=== PATIENT | female | born 1950 | race Asian ===

== ENCOUNTER → 2016-10-16 | Outpatient (CLI) | payer MEDICARE, BC ==
--- NOTE | 2016-10-18 07:53 | RADRPT ---
PROCEDURE: XR Knee. CLINICAL INDICATION: Left knee pain TECHNIQUE: 4 views of the left knee are available for review. COMPARISON: None available FINDINGS: There is severe joint space narrowing and osteophyte formation involving the medial and patellofemor al compartments. No acute fracture or dislocation is identified. Bony mineralization is normal. T here is no radiodense foreign body. There is approximately 5 mm lateral subluxation of the tibia re lative to the femur. IMPRESSION: 1. Severe left knee osteoarthrosis, with approximate 5 mm lateral subluxation of the tibia. 2. No acute fracture or dislocation is seen. RPTAT: EE .Irvin Melendez MD, MD Date Time Electronically viewed and signed by .Irvin Melendez MD, on 10/18/2016 07:53 .R/
== END | disposition home or self-care (01) ==
LOC: HKI 15:10
PROVIDERS: ATTEND Orthopaedic Surgery
DX: M17.0 Bilateral primary osteoarthritis of knee (principal); M25.562 Pain in left knee
CPT/HCPCS: 73564; G0463

== ENCOUNTER → 2016-11-01 | Outpatient (CLI) | payer MEDICARE, BC ==
--- NOTE | 2016-11-01 13:39 | RADRPT ---
PROCEDURE: Limited x-ray of both lower extremities. CLINICAL INDICATION: Bilateral leg pain. TECHNIQUE: Single frontal view of both lower extremities was obtained from the hips to the calves. COMPARISON: Left knee radiographs dated 10/16/2016. FINDINGS: They hips not well seen but appear grossly normal with no displaced fracture or dislocation. There are severe degenerative changes of both knees. IMPRESSION: 1. Hips not well seen. 2. Severe degenerative changes of both knees. RPTAT: QQ .Franko Naqvi MD, Date Time Electronically viewed and signed by .Franko Naqvi MD, on 11/01/2016 13:39 .R/
== END | disposition home or self-care (01) ==
LOC: HKI 10:42
PROVIDERS: ATTEND Orthopaedic Surgery
DX: Z01.818 Encounter for other preprocedural examination (principal); M17.12 Unilateral primary osteoarthritis, left knee; M25.562 Pain in left knee
CPT/HCPCS: 77073; G0463

== ENCOUNTER 2016-11-09 07:44 | Inpatient (IN) | payer MEDICARE, BC ==
[~2016-11-09] VITALS: Ht 147.3 cm; Wt 61.6 kg
[2016-11-09] VITALS (24 sets, daily range): BP systolic 107–184; BP diastolic 56–87; PULSE 74–104; RESP 8–35; Ht 147.3 cm; Wt 61.6 kg
[~2016-11-09 07:44] MED LIST: ROCURONIUM 50 MG INJ ONE; SUCCINYLCHOLINE CHLORIDE 100 MG/5 ML SYG IV ONE
[2016-11-09] MEDS ORDERED: BUPIVACAINE LIPOSOME/PF 266 MG/20 ML VIAL INFIL ONE (09:00)
[2016-11-09] MEDS ORDERED: TRANEXAMIC ACID in SOD CHLORIDE 0.9% 100 ML ON CALL TO OR IV ONE (09:00)
[2016-11-09] MEDS ORDERED: CELECOXIB 400 MG PO X1 DOSE PO ONE (09:00)
[2016-11-09] MEDS ORDERED: traMADOL 50 MG TAB X 1 DOSE PO ONE (09:00)
[2016-11-09] MEDS ORDERED: oxyCODONE (CR) 10 MG TAB [oxyCONTIN] X1 DOSE PO ONE (09:00)
[2016-11-09] MEDS ORDERED: PAIN COCKTAIL-CEFUROXIME IRR ONE ×7 (09:00)
[2016-11-09] MEDS ORDERED: TRANEXAMIC ACID 600 MG in SOD CHLORIDE 0.9% 100 ML IVPB ONE (09:00)
[2016-11-09] MEDS ORDERED: CEFAZOLIN 2GM/50 ML (PMX) 50 ML X1 BEFORE INCISION IVPB ONE (09:00)
[2016-11-09] MEDS ORDERED: PREGABALIN 300 MG PO X1 PO ONE (09:00)
[2016-11-09] MEDS ORDERED: MTF1000T PO (09:37)
[2016-11-09] MEDS ORDERED: FERR325C PO (09:37)
[2016-11-09] MEDS ORDERED: CHOL20003 PO (09:37)
[2016-11-09] MEDS ORDERED: ASPI-664 PO (09:37)
[2016-11-09] MEDS ORDERED: GLIP-95 PO (09:37)
[2016-11-09] MEDS ORDERED: SUPER K PO (09:37)
[2016-11-09] MEDS ORDERED: MULT-860 PO (09:37)
--- NOTE | 2016-11-09 10:14 | HPN ---
Date/Time of Note Date/Time of Note DATE: 11/09/16 TIME: 10:14 Interval H&P Admission Note Pt. seen H&P reviewed: No system changes No changes from H&P on 11/02/16 by ANT Moscoso MD Nov 09, 2016 10:14
[2016-11-09] MEDS ORDERED: SODIUM CL BACTERIOSTATIC 30 ML INJ ONE (10:34)
[2016-11-09] MEDS ORDERED: VANCOMYCIN 1 GM INJ ONE (10:34)
[2016-11-09] MEDS ORDERED: POLYMYXIN B 500000 UNIT INJ ONE (10:34)
[2016-11-09] MEDS ORDERED: PROPOFOL 100 ML ONE (10:45)
[2016-11-09] MEDS ORDERED: LIDOCAINE 2% (SDV) 5 ML INJ ONE (10:45)
[2016-11-09] MEDS ORDERED: FENTAnyl 50 MCG/ML VIAL ONE (10:45)
[2016-11-09] MEDS ORDERED: MIDAZOLAM 1 MG/ML 2 ML INJ ONE (10:47)
[2016-11-09] MEDS ORDERED: ONDANSETRON 4 MG INJ ONE (11:02)
[2016-11-09] MEDS ORDERED: METOCLOPRAMIDE 10 MG INJ ONE (11:02)
[2016-11-09] MEDS ORDERED: FAMOTIDINE 20 MG INJ ONE (11:02)
[2016-11-09] MEDS ORDERED: DEXAMETHASONE 4 MG/ML 1 ML INJ ONE (11:02)
[2016-11-09] MEDS ORDERED: CEFAZOLIN 1 GM INJ ONE (11:02)
[2016-11-09] MEDS ORDERED: EPHEDrine SULFATE 50 MG/5 ML SYG ONE ×2 (11:32→12:00)
[2016-11-09] MEDS ORDERED: BACITRACIN 50000 UNITS INJ IRR ONE (11:55)
--- NOTE | 2016-11-09 13:26 | OPPN ---
Date/Time of Note Date/Time of Note DATE: 11/09/16 TIME: 13:25 Operative/Procedure Note Dictation # [id number] Pre-Operative Diagnosis Left Knee OA Post-Operative Diagnosis Same Procedure Left TKA Surgeon: ANT DEUTSCH MD [employer] Systems Integration Specialist: ARVIND ROSE PA-C Anesthesiologist: JOEL ROSADO MD Findings Severe OA Blood Usage/Administration None Implants/Grafts Depuy Attune TKA Estimated blood loss: 50 - 100 ml's Drains Hemovac x 1 Specimens Bone and soft tissue Complications: None Anesthesia type: spinal ANT DEUTSCH MD Nov 09, 2016 13:26
[2016-11-09] MEDS ORDERED: BISACODYL 10 MG SUPP PR PRN (13:30)
[2016-11-09] MEDS ORDERED: ASPIRIN (EC) 325 MG TAB PO ONE (13:30)
[2016-11-09] MEDS ORDERED: ONDANSETRON 4 MG INJ IV PRN (13:30)
[2016-11-09] MEDS ORDERED: DIPHENHYDRAMINE 50 MG INJ IV PRN (13:30)
[2016-11-09] MEDS ORDERED: NA PHOSPHATE/BIPHOS 133 ML ENEMA PR PRN (13:30)
[2016-11-09] MEDS ORDERED: DIPHENHYDRAMINE 25 MG CAP PO PRN (13:30)
[2016-11-09] MEDS ORDERED: HYDROmorphONE (0.2 MG/ML) 10ML SYG IV PRN (13:30)
[2016-11-09] MEDS ORDERED: FENTAnyl 50 MCG/ML VIAL IV PRN (13:30)
[2016-11-09] MEDS ORDERED: MEPERIDINE 25 MG INJ IV PRN (13:30)
[2016-11-09] MEDS ORDERED: PROCHLORPERAZINE 10 MG INJ IV PRN (13:30)
[2016-11-09] MEDS ORDERED: NACL 0.9% 3 ML SYG IV SCH (13:30)
[2016-11-09] MEDS ORDERED: MAGNESIUM HYDROXIDE 30ML CUP PO PRN (13:30)
[2016-11-09] MEDS ORDERED: INSULIN ASPART [NOVOLOG] 3 ML PEN SC SCH (13:30)
[2016-11-09] MEDS ORDERED: HYDROmorphONE 1 MG/ML SYG IV PRN (13:30)
--- NOTE | 2016-11-09 13:43 | OPR ---
DATE OF OPERATION: 11/09/2016 PREOPERATIVE DIAGNOSIS: Left knee osteoarthritis. POSTOPERATIVE DIAGNOSIS: Left knee osteoarthritis. OPERATION PERFORMED: Left total knee arthroplasty. SURGEON: Ant Powell MD ENTERTAINMENT MUSICIAN: CULLEN Comer COMPONENTS USED: DePuy Attune size 3 narrow femoral component, size 1 tibial baseplate, 10 mm polye thylene insert, 32 patellar button. ANESTHESIA: Spinal plus general endotracheal intubation plus periarticular injection. ANESTHESIOLOGIST: Dr. Meredith Sinclair. TOURNIQUET TIME: 64 minutes. ESTIMATED BLOOD LOSS: 50 mL. INTRAVENOUS FLUIDS: 2000 mL of crystalloid. SPECIMENS: Bone and soft tissue. DRAINS: Hemovac x1. COMPLICATIONS: None. DISPOSITION: Patient tolerated the procedure well and was taken to the recovery room in stable [facility]. INDICATIONS: The patient is a 66-year-old woman who has had progressive worsening pain in the left knee with radiographic evidence of severe osteoarthritis. She has failed nonsurgical means of treat ment to control her pain including activity modifications, pain medications, intra-articular injecti ons and ambulatory assist devices. Despite these measures, she has had worsening pain and I felt sh e would benefit from a total knee arthroplasty cut approximately. APPROACH: The risks, benefits, and alternatives of the procedure were explained in detail to the patient. I e xplained the risks of the surgery to include but not be limited to, bleeding and possible need for b lood transfusion; infection; pain; stiffness; neurovascular injury with possible numbness, weakness, and/or paralysis anywhere from the knee down to the toes; fracture; instability; dislocation; wear and/or loosening of the prosthesis and possible need for future revision; blood clots; pulmonary emb olism; and anesthetic complications such as heart attack, stroke, GI bleed, pneumonia, and/or . Ample time was allowed for the patient to ask questions, all of which were addressed and answered. The patient understood the risks involved and wished to proceed. Informed consent was signed prior to the procedure. PROCEDURE: The patient's left knee was initialed with a marking pen in the preoperative area to kaiden ntify the correct operative site. The patient was brought to the operating room and transferred fro [facility] to the operating table where a spinal anesthetic was administered. The patient was then anesthetized and intubated. A Lazo catheter was placed. A timeout was performed to conf irm that the left leg was the correct operative site. The patient was given 2 g of Ancef within one hour prior to the procedure. A tourniquet was placed on the operative proximal thigh. The operati ve knee and lower extremity were prepped and draped in the usual sterile fashion. The operative low er extremity was elevated and exsanguinated with an Esmarch tourniquet. The proximal thigh tourniqu et was inflated to 300 mmHg. The knee was flexed. A midline incision was made and carried down through the subcutaneous tissue a nd fat with sharp dissection. Limited medial and lateral flaps were raised. A median parapatellar arthrotomy approach was performed. Synovial fluid was normal in color and consistency. The patella was everted and the knee flexed. There were severe tricompartmental osteoarthritic changes noted. A medial release was performed at the joint line to the midcoronal plane. The ACL and PCL and remnan ts of the menisci were excised. The stepped drill was used to open up the femoral canal which was i rrigated and sucked dry. The intramedullary guide patsy was passed up the femur, and the distal cutti ng block was pinned into place for a 5 degree valgus cut, taking 10 mm of bone off distally. The osc illating saw was used to make the cut. The tibia was subluxed anteriorly. The tibial cutoff jig was placed over the center of the talus d istally and over the junction of the medial and middle third of the tibial tubercle proximally. The guide was pinned into place and the oscillating saw was used to make the cut. The tibia was sized. The extension gap was checked and accommodated a 10 mm spacer block with the knee in full extension . There was no varus or valgus instability. At this point, the femur was sized with the posterior referencing guide. Two holes were drilled in 3 degrees of external rotation. The two holes were in line with the transepicondylar axis, perpendi cular to [place] line, and in line with the tibial cutoff jig brought up with the knee flexed 90 degrees and tensed with 2 lamina spreaders, suggesting the femoral rotation was correct. The four- in-one cutting block was pinned into place. The anterior and posterior cuts and chamfer cuts were m lily with the oscillating saw. The flexion gap was checked and accommodated the 10 mm spacer block a t 90 degrees. There was no varus or valgus instability, suggesting the flexion and extension gaps w ere now equal. The central box was cut out on the femur. The tibia was drilled and punched in proper rotation. Tri al components were placed into position with a trial insert. The patella was cut down from 18 mm to 12 mm and sized. Three holes were drilled and the trial button placed in position. With all the t rials now in place, the knee was taken through range of motion and came to full extension as evidenc ed by the fact that with the foot on my abdomen and axial loading, there was no tendency for the kne e to flex. The knee was able to be flexed to 125 degrees with good patellar tracking with no latera l tilt or subluxation. At this point, I was satisfied with the overall range of motion, stability, and patellar tracking. The trials were removed. The real components were opened. Two bags of cement were mixed, one with and one without premixed antibiotic. The knee was irrigated with antibiotic saline and sucked dry. Once the cement was in a doughy stage, the real components were cemented into place. The knee was held in full extension, and the patellar component was held with a patellar clamp. All excess cemen t was removed with curettes. As the cement was hardening, the synovial/capsular layer was infiltrat ed with a mixture of 150 mg of 0.5% Bupivacaine, 8 mg of Duramorph, 300 mcg of epinephrine, 30 mg of Toradol, 100 mcg of clonidine, 750 mg of cefuroxime and 86 mL of normal saline, followed by an inje ction of 266 mg of liposomal Bupivacaine. A Hemovac drain was placed in the deep portion of the wound and brought out the anterolateral thigh. Once the cement was completely hardened, the trial liner was removed, and the real insert was open ed. The tourniquet was let down, and there was good hemostasis. The knee was then irrigated with a mixture of betadine/saline and then antibiotic saline with pulsatile lavage. The real insert was impacted into the tibia and reduced onto to the femur. The arthrotomy was closed with a few interrupted #1 Ethibond in a dsyrbj-gb-bgbpt fashion, and then closed in a watertight fashion with a running #2 StrataFix suture. Knee flexion was checked against gravity and came to 125 degrees. The subcutaneous layer was irrigated and closed with 2-0 StrataFi x, and then 3-0 Vicryl and then francisco on the skin. The wound was covered with an occlusive dressi ng, and secured with cast padding and a bias dressing. The drain was secured with 3-0 nylon. The sponge and needle counts were correct at the end of the case. The patient was then awakened, ex tubated, and taken to the recovery room in stable condition. Dictated By: ANT GRIFFIN/NTS Conf#: [id number] DID#: [id number]
--- NOTE | 2016-11-09 13:50 | PN ---
Date/Time of Note Date/Time of Note DATE: 11/09/16 TIME: 13:49 Assessment/Plan Lines/Catheters IV Catheter Type (from Nrsg): Peripheral IV Assessment/Plan Assessment/Plan Stable in PACU, s/p left TKA -continue abx -pain meds as needed -ASA/SCDs for DVT prophylaxis -OOB with PT -monitor drain -check AM labs -d/c gordillo in AM XR of the left hip is still pending at this time Subjective 24 Hr Interval Summary Stable in PACU. Denies any pain but still sleepy from anesthesia. Moving all extremities. Exam/Review of Systems Vital Signs Vitals Vital Signs Date Time Temp Pulse Resp B/P Pulse Ox O2 Delivery O2 Flow Rate FiO2 11/09/16 13:31 97.9 11/09/16 13:22 87 112/62 99 Nasal Cannula 11/09/16 09:40 16 Exam Free Text/Dictation Dressing dry Incision clean, dry, and intact without redness or drainage Thigh soft 5/5 Quadriceps, Tibialis Anterior, EHL, Gastroc, Soleus, Peroneals Normal sensation Palpable DT/PT, CR <2 sec No distal edema ARVIND ROSE PA-C Nov 09, 2016 13:50
[2016-11-09] MEDS: CEFAZOLIN 2 GM/50 ML (PMX) 50 ML IVPB SCH ×2 (13:59→22:22)
[2016-11-09] MEDS ORDERED: GLUCOSE GEL 15 GRAM TUBE BUCCAL PRN (14:00)
[2016-11-09] MEDS ORDERED: GLUCAGON 1 MG INJ IM PRN (14:00)
[2016-11-09] MEDS ORDERED: GLUCOSE GEL 15 GRAM TUBE PO PRN ×2 (14:00)
[2016-11-09] MEDS ORDERED: DEXTROSE 50% 50 ML SYRINGE IV PRN ×2 (14:00)
[2016-11-09 14:01] LABS: HEMATOCRIT 34.8 % (37.0-47.0); HEMOGLOBIN 11.1 g/dl (12.0-16.0)
[2016-11-09 14:13] LABS: POTASSIUM 3.9 mmol/L (3.5-5.1)
[2016-11-09 14:15] LABS: CREATININE 0.45 mg/dl (0.44-1.00)
[2016-11-09 14:16] LABS: CALCIUM 8.3 mg/dl (8.4-10.2)
--- NOTE | 2016-11-09 15:10 | RADRPT ---
PROCEDURE: XR Knee. CLINICAL INDICATION: Postop TECHNIQUE: AP and lateral views of the left knee are available for review. COMPARISON: None available FINDINGS: A cemented left total knee arthroplasty is present in near anatomic alignment without acute radiogra phic abnormality. Recent surgical changes seen in the soft tissues. IMPRESSION: 1. Total left knee arthroplasty in near anatomic alignment without acute radiographic abnormality RPTAT: RR .Escobar Vega MD, MD Date Time Electronically viewed and signed by .Escobar Vega MD, on 11/09/2016 15:10 .d/
[2016-11-09] MEDS ORDERED: EXPAREL NOTE (BUPIVICAINE LIPOSOMAL) XX SCH (16:00)
[2016-11-09] MEDS: LACTATED RINGER'S 1,000 ML IV SCH ×4 (16:00→20:56)
[2016-11-09] MEDS ORDERED: SOD CHLORIDE 0.9% IVPB ONE ×2 (16:30→19:30)
[2016-11-09] MEDS ORDERED: TRANEXAMIC ACID IVPB ONE ×2 (16:30→19:30)
[2016-11-09] MEDS ORDERED: metFORMIN 500 MG TAB PO SCH (17:55)
[2016-11-09] MEDS: ACETAMINOPHEN 1000MG/100ML IV 100 ML IVPB SCH (18:44)
[2016-11-09] MEDS: PANTOPRAZOLE (EC) 40 MG TAB PO SCH (18:45)
[2016-11-09] MEDS: traMADol 50 MG TAB PO SCH (18:46)
[2016-11-09] MEDS: ONDANSETRON 4 MG INJ IV PRN (18:50)
[2016-11-09] MEDS ORDERED: TRIMETHOBENZAMIDE 100 MG/ML VIAL IM PRN (20:00)
[2016-11-09] MEDS: DOCUSATE SODIUM 100 MG CAP PO SCH (20:15)
[2016-11-09] MEDS: PREGABALIN 25 MG CAP PO SCH (20:16)
--- NOTE | 2016-11-09 20:50 | PREOPHP ---
DATE OF ADMISSION: 11/09/2016 TYPE OF CONSULTATION: Medical. Thank you, Dr. Deutsch, for asking me to participate in medical management of this patient. REASON FOR CONSULTATION: To manage the patient's diabetes mellitus. HISTORY OF PRESENT ILLNESS: This 66-year-old female is now postop a left total knee arthroplasty to day by Dr. Deutsch. The patient has had pain in both knees. She has osteoarthritis in both knees an d has had more difficulty walking with increasing pain. The patient has failed medical therapy and has decided to undergo a left total knee arthroplasty. The patient has a history of type 2 diabetes mellitus. MEDICATIONS She is currently taking the following medication: 1. Metformin 1000 mg twice a day. 2. Glipizide 10 mg twice a day. PAST SURGICAL HISTORY: Remarkable for umbilical hernia surgery. ALLERGIES: NO KNOWN DRUG ALLERGIES. PHYSICAL EXAMINATION GENERAL: At this time, reveals a well-developed female in no apparent distress. She is having some nausea with some vomiting. VITAL SIGNS: Pulse of 80, respirations 12, blood pressure 119/60, O2 saturation 97% on 2 L nasal ca nnula. HEENT: Head normocephalic. Eyes, extraocular muscles intact. Nose and mouth are normal. NECK: Supple. No neck vein distention. LUNGS: Clear to auscultation. HEART: Regular rhythm. No murmurs, gallops or rubs. ABDOMEN: Soft, nontender. EXTREMITIES: No peripheral edema. IMPRESSION: This 66-year-old female is now postoperative a left total knee replacement. She is hav ing postoperative nausea. This is being treated. I explained to the patient to not eat or drink an ything until she is feeling less nauseated. PLAN 1. Start the patient on sliding scale insulin to cover elevated blood sugar. 2. Keep the patient n.p.o. until the nausea has resolved. 3. Postop total knee arthroplasty protocol. 4. I will follow the patient along with you. 5. Laboratory tests in the morning. Dictated By: DARRELL NAVARRETE MD, ND/KVNG Conf#: [id number] DID#: [id number] CC: ANT DEUTSCH MD;*EndCC*
[2016-11-09] MEDS: INSULIN ASPART [NOVOLOG] 3 ML PEN SC SCH (21:00)
[2016-11-10] MEDS: ACETAMINOPHEN 1000MG/100ML IV 100 ML IVPB SCH ×3 (00:12→13:44)
[2016-11-10] MEDS: ACCUCHECK XX SCH (01:53)
[2016-11-10 04:51] LABS: HEMATOCRIT 30.8 % (37.0-47.0); HEMOGLOBIN 9.6 g/dl (12.0-16.0)
[2016-11-10] MEDS: LACTATED RINGER'S 1,000 ML IV SCH ×5 (05:00→21:18)
[2016-11-10 05:16] LABS: POTASSIUM 4.4 mmol/L (3.5-5.1)
[2016-11-10 05:18] LABS: CREATININE 0.52 mg/dl (0.44-1.00)
[2016-11-10 05:19] LABS: CALCIUM 8.6 mg/dl (8.4-10.2)
[2016-11-10] MEDS: traMADol 50 MG TAB PO SCH ×3 (05:25→17:54)
[2016-11-10] MEDS: CEFAZOLIN 2 GM/50 ML (PMX) 50 ML IVPB SCH (06:36)
[2016-11-10] MEDS ORDERED: glipiZIDE 10 MG TAB PO SCH (07:00)
--- NOTE | 2016-11-10 07:36 | PDOCDIS ---
Discharge Instructions DIAGNOSIS Discharge Diagnosis: s/p left TKA CONDITION Patient Condition: Good HOME CARE INSTRUCTIONS: Diet Instructions: RegularSpecial Diet: VEGETERIAN/1800 ADA DIET ACTIVITY: Activity Restrictions: Slowly Increase Activity Rest between Activity Avoid heavy lifting Do not Drive Do not operate Machinery Do not operate Power Tool Avoid Heavy Housework Keep Limb Elevated Weight Bearing FOLLOW UP/APPOINTMENTS Appointments follow up in the office on 11/20/16 OTHER ORDERS: Other Orders: S/P TKA Physical Therapy: Three times per week at home x 2 weeks Daily in Rehab/SNF (if applicable) WB STATUS: WBAT 1. Strengthening exercises for both upper and un-operated lower extremities. 2. Gait training with front wheeled walker 3. Active range of motion exercises to operative knee. 4. When not working on knee range of motion exercises, distal towel roll under operative ankle/distal calf to promote full extension. 5. DO NOT PUT ANYTHING BEHIND OPERATIVE KNEE!!! 6. Quadriceps and hamstring strengthening. 7. May switch to cane in contra lateral hand 6 weeks after surgery. 8. Physical Therapy can open case if nursing is not available. 9. Use Ice Machine as instructed from date of surgery while at rest 3X/day. 10. Patient requires mobile SCDs to reduce risk of developing DVT following TKA. Patient will use the mobile SCDs for 30 days postoperatively. Bathing assistance by home health aide twice weekly if Medicare patient. Occupational Therapy: Evaluation for assistive devices and ADL training. Wound Care: Keep incision dry & covered with Tegaderm until first visit with Dr. Powell Anticoagulation Orders: Enteric Coated Aspirin 325 mg po bid x 6 weeks from date of surgery Follow-up:Call for an appointment with Dr. Powell in 1 week after discharged from hospital at DME Orders: FWW, 3-in-1 Commode, Polar ice machine, Mobile SCDs ARVIND ROSE PA-C Nov 10, 2016 07:36
[2016-11-10] MEDS ORDERED: HYDR-905 PO (07:38)
[2016-11-10] MEDS ORDERED: ASPI325T32 PO (07:38)
[2016-11-10] MEDS ORDERED: LYRI25 PO (07:38)
[2016-11-10] MEDS ORDERED: TRAM50TA2 PO (07:38)
[2016-11-10] MEDS ORDERED: PANT40TA4 PO (07:38)
[2016-11-10] MEDS: INSULIN ASPART [NOVOLOG] 3 ML PEN SC SCH ×4 (07:50→20:30)
[2016-11-10 08:22] VITALS: BP 125/60; RESP 63
[2016-11-10] MEDS: CELECOXIB 200 MG CAP PO SCH (08:43)
[2016-11-10] MEDS: DOCUSATE SODIUM 100 MG CAP PO SCH ×2 (08:43→20:19)
[2016-11-10] MEDS: ASPIRIN (EC) 325 MG TAB PO SCH ×2 (08:43→20:19)
[2016-11-10] MEDS: PREGABALIN 25 MG CAP PO SCH ×2 (08:43→20:20)
--- NOTE | 2016-11-10 08:44 | PN ---
Date/Time of Note Date/Time of Note DATE: 11/10/16 TIME: 08:43 Assessment/Plan Lines/Catheters IV Catheter Type (from Nrsg): Peripheral IV Lazo in Place (from Nrsg): Yes Assessment/Plan Assessment/Plan Stable POD 1, s/p left TKA -d/c abx -pain meds as needed -ASA/SCDs -OOB with PT -check AM labs -drain removed -d/c planning. Will go to [facility] upon discharge Subjective 24 Hr Interval Summary Doing well. No acute overnight events. Denies pain. Did not start PT yesterday. VSS, afebrile. Would like to go to [facility] upon discharge Exam/Review of Systems Vital Signs Vitals Vital Signs Date Time Temp Pulse Resp B/P Pulse Ox O2 Delivery O2 Flow Rate FiO2 11/10/16 08:22 97.6 63 63 125/60 98 11/09/16 18:25 Nasal Cannula 11/09/16 13:47 2.0 Intake and Output 11/09/16 11/09/16 11/10/16 15:00 23:00 07:00 Intake Total 1206 ml 760 ml 1150 ml Output Total 950 ml 690 ml 40 ml Balance 256 ml 70 ml 1110 ml Exam Free Text/Dictation Hemovac: 180cc Dressing dry Incision clean, dry, and intact without redness or drainage Thigh soft 5/5 Quadriceps, Tibialis Anterior, EHL, Gastroc, Soleus, Peroneals Normal sensation Palpable DT/PT, CR <2 sec No distal edema Results Result Diagram: 11/10/1641911/10/16419 ARVIND ROSE PA-C Nov 10, 2016 08:44
--- NOTE | 2016-11-10 10:57 | CONS ---
Date/Time of Note Date/Time of Note DATE: 11/10/16 TIME: 10:52 Assessment/Plan Assessment/Plan Chief Complaint/Hosp Course She is 1 day postop a left total knee arthroplasty. She is up walking with physical therapy. Her nausea has resolved and she feels much better than yesterday. I will restart her Metformin for her type 2 diabetes mellitus. Continue Accu- Chek coverage with Humalog insulin as needed. Problems: Consultation Date/Type/Reason Admit Date/Time Nov 09, 2016 at 07:44 Initial Consult Date 24 HR Interval Summary Free Text/Dictation She is feeling much better today. She is 1 day postop a left total knee arthroplasty. Nausea has resolved and she is taking p.o. fluids well. Constitutional: improved, no complaints Exam/Review of Systems Vital Signs Vitals Vital Signs Date Time Temp Pulse Resp B/P Pulse Ox O2 Delivery O2 Flow Rate FiO2 11/10/16 08:22 97.6 63 63 125/60 98 11/09/16 18:25 Nasal Cannula 11/09/16 13:47 2.0 Intake and Output 11/09/16 11/09/16 11/10/16 15:00 23:00 07:00 Intake Total 1206 ml 760 ml 1150 ml Output Total 950 ml 690 ml 40 ml Balance 256 ml 70 ml 1110 ml Exam Constitutional: alert, oriented, well developed Psych: nl mood/affect, no complaints Respiratory: clear to auscultation, normal air movement Cardiovascular: regular rate and rhythm Musculoskeletal: nl extremities to inspection Results Result Diagram: 11/10/16 0420 11/10/16 0420 Results 24 hrs Laboratory Tests Test 11/09/16 13:28 11/09/16 13:44 11/09/16 13:49 11/09/16 17:53 Bedside Glucose 258 H 238 H Anion Gap 18 H Blood Urea Nitrogen 7 Calcium Level 8.3 L Carbon Dioxide Level 24 Chloride Level 107 Creatinine 0.45 Glucose Level 252 H Potassium Level 3.9 Sodium Level 145 H Hematocrit 34.8 L Hemoglobin 11.1 L Test 11/09/16 21:01 11/10/16 04:20 11/10/16 08:10 Bedside Glucose 234 H 127 Anion Gap 16 Blood Urea Nitrogen 9 Calcium Level 8.6 Carbon Dioxide Level 26 Chloride Level 102 Creatinine 0.52 Glucose Level 160 Hematocrit 30.8 L Hemoglobin 9.6 L Potassium Level 4.4 Sodium Level 140 Medications Medications Current Medications Lactated Ringer's (Lr) 1,000 ml @ 100 mls/hr Q10H IV Last administered on 20:36; Admin Dose 100 MLS/HR; Start 11/09/16 at 09:00 Miscellaneous Information 1 ea 1 ea NOTE XX ; Start 11/09/16 at 16:00; Stop at 15:59 Lactated Ringer's (Lr) 1,000 ml @ 125 mls/hr Q8H IV Last administered on 06:35; Admin Dose 125 MLS/HR; Start 11/09/16 at 13:18 Celecoxib 200 mg 200 mg DAILY PO Last administered on 11/10/16 08:43; Admin Dose 200 MG; Start 11/10/16 at 09:00 Acetaminophen (Ofirmev 1000mg/ 100ml Iv) 100 ml @ 400 mls/hr Q6 IVPB Last administered on 11/10/16 05:23; Admin Dose 400 MLS/HR; Start 11/09/16 at 18:00; Stop 11/10/16 at 17:59 Tramadol HCl (Ultram) 50 mg Q6 PO Last administered on 11/10/16 05:25; Admin Dose 50 MG; Start 11/09/16 at 18:00; Stop 11/12/16 at 17:59 Oxycodone HCl (Roxicodone) 5 mg Q4H PRN PO PAIN LEVEL 1-3; Start 11/09/16 at 13: 30 Oxycodone HCl (Roxicodone) 10 mg Q4H PRN PO PAIN LEVEL 4-7; Start 11/09/16 at 13 :30 Hydromorphone HCl (Dilaudid) 1 mg Q3H PRN IV PAIN LEVEL 8-10; Start 11/09/16 at 13:30 Ondansetron HCl (Zofran Inj) 4 mg Q6H PRN IV NAUSEA AND/OR VOMITING Last administered on 11/09/16 18:50; Admin Dose 4 MG; Start 11/09/16 at 13:30 Bisacodyl (Dulcolax Supp) 10 mg Q12H PRN [place] CONSTIPATION; Start 11/09/16 at 13: 30 Magnesium Hydroxide (Milk Of Mag) 30 ml BID PRN PO CONSTIPATION; Start 11/09/16 at 13:30 Sodium Biphosphate/ Sodium Phosphate (Fleet Enema) 133 ml DAILY PRN [place] CONSTIPATION; Start 11/09/16 at 13:30 Docusate Sodium (Colace) 100 mg BID PO Last administered on 11/10/16 08:43; Admin Dose 100 MG; Start 11/09/16 at 21:00 Diphenhydramine HCl (Benadryl) 25 mg Q6H PRN PO PRURITUS; Start 11/09/16 at 13: 30 Aspirin (Ecotrin) 325 mg BID PO Last administered on 11/10/16 08:43; Admin Dose 325 MG; Start 11/10/16 at 09:00 Pantoprazole (Protonix Tab) 40 mg BID@06,18 PO ; Start 11/09/16 at 18:00 Pregabalin (Lyrica) 50 mg BID PO Last administered on 11/10/16 08:43; Admin Dose 50 MG; Start 11/09/16 at 21:00 Miscellaneous Information 1 ea NOTE XX ; Start 11/09/16 at 14:00 Glucose (Glutose) 15 gm Q15M PRN PO DECREASED GLUCOSE; Start 11/09/16 at 14:00 Glucose (Glutose) 22.5 gm Q15M PRN PO DECREASED GLUCOSE; Start 11/09/16 at 14:00 Dextrose (D50w Syringe) 25 ml Q15M PRN IV DECREASED GLUCOSE; Start 11/09/16 at 14:00 Dextrose (D50w Syringe) 50 ml Q15M PRN IV DECREASED GLUCOSE; Start 11/09/16 at 14:00 Glucagon (Glucagen) 1 mg Q15M PRN IM DECREASED GLUCOSE; Start 11/09/16 at 14:00 Glucose (Glutose) 15 gm Q15M PRN BUCCAL DECREASED GLUCOSE; Start 11/09/16 at 14: 00 Diagnostic Test (Pha) (Accucheck) 1 ea 02 XX ; Start 11/10/16 at 02:00 Trimethobenzamide HCl (Tigan) 200 mg Q6H PRN IM NAUSEA AND/OR VOMITING; Start 11/09/16 at 20:00 DARRELL NAVARRETE MD Nov 10, 2016 10:56
[2016-11-10 14:05] LABS: ADD UMIC YES; URINE BILIRUBIN (Dip) NEGATIVE (NEGATIVE); URINE BLOOD (Dip) TRACE (NEGATIVE); URINE COLOR LT. YELLOW (YELLOW); URINE KETONES (Dip) TRACE (NEGATIVE); URINE LEUKOCYTE ESTERASE (Dip) NEGATIVE (NEGATIVE); URINE NITRITE (Dip) NEGATIVE (NEGATIVE); URINE TOTAL PROTEIN (Dip) NEGATIVE (NEGATIVE); URINE UROBILINOGEN (Dip) 0.2 E.U./dL (0.1-1.0)
[2016-11-10 14:20] LABS: BACTERIA,URINE RARE; URINE RBCS 0-2 /HPF (0)
[2016-11-10] MEDS: metFORMIN 500 MG TAB PO SCH (17:53)
[2016-11-10] MEDS: PANTOPRAZOLE (EC) 40 MG TAB PO SCH (17:54)
[2016-11-11] MEDS: traMADol 50 MG TAB PO SCH ×4 (00:25→17:42)
[2016-11-11] MEDS: LACTATED RINGER'S 1,000 ML IV SCH ×3 (01:00→13:18)
[2016-11-11] MEDS: ACCUCHECK XX SCH (02:48)
[2016-11-11 05:24] LABS: HEMATOCRIT 29.9 % (37.0-47.0); HEMOGLOBIN 9.3 g/dl (12.0-16.0)
[2016-11-11 05:44] LABS: POTASSIUM 3.2 mmol/L (3.5-5.1)
[2016-11-11 05:46] LABS: CREATININE 0.48 mg/dl (0.44-1.00)
[2016-11-11 05:47] LABS: CALCIUM 8.5 mg/dl (8.4-10.2)
[2016-11-11] MEDS: PANTOPRAZOLE (EC) 40 MG TAB PO SCH ×2 (07:02→18:00)
[2016-11-11 08:02] VITALS: BP 151/65; RESP 20
[2016-11-11] MEDS: metFORMIN 500 MG TAB PO SCH ×2 (08:23→17:42)
[2016-11-11] MEDS: CELECOXIB 200 MG CAP PO SCH (08:23)
[2016-11-11] MEDS: ASPIRIN (EC) 325 MG TAB PO SCH ×2 (08:23→20:20)
[2016-11-11] MEDS: PREGABALIN 25 MG CAP PO SCH ×2 (08:23→20:20)
[2016-11-11] MEDS: DOCUSATE SODIUM 100 MG CAP PO SCH ×2 (08:23→20:20)
--- NOTE | 2016-11-11 08:24 | PN ---
Date/Time of Note Date/Time of Note DATE: 11/11/16 TIME: 08:22 Assessment/Plan Lines/Catheters IV Catheter Type (from Nrsg): Peripheral IV Lazo in Place (from Nrsg): Yes Assessment/Plan Assessment/Plan POD # 2. Stable. -OOB with PT -Pain meds -ASA/SCDs -Possible d/c to SNF tomorrow Subjective 24 Hr Interval Summary Doing well. Minimal pain. Walked well with PT yesterday. Exam/Review of Systems Vital Signs Vitals Vital Signs Date Time Temp Pulse Resp B/P Pulse Ox O2 Delivery O2 Flow Rate FiO2 11/11/16 08:02 97.9 94 20 151/65 93 11/09/16 18:25 Nasal Cannula 11/09/16 13:47 2.0 Intake and Output 11/10/16 11/10/16 11/11/16 15:00 23:00 07:00 Intake Total 100 ml 2500 ml 920 ml Output Total 780 ml 1200 ml Balance 100 ml 1720 ml -280 ml Exam Free Text/Dictation Dressing dry Incision clean, dry, and intact without redness or drainage 5/5 Tibialis Anterior, EHL, Gastroc Soleus, Peroneals Normal sensation Palpable DP/PT, CR < 2 Sec No distal edema Results Result Diagram: 11/11/16 0426 11/11/16 0426 ANT DEUTSCH MD Nov 11, 2016 08:24
[2016-11-11] MEDS: INSULIN ASPART [NOVOLOG] 3 ML PEN SC SCH ×4 (08:25→20:28)
[2016-11-11] MEDS: ONDANSETRON 4 MG INJ IV PRN (10:52)
[2016-11-11] MEDS ORDERED: SOD CHLORIDE 0.9% 500 ML IV ONE (12:00)
--- NOTE | 2016-11-11 12:01 | CONS ---
Date/Time of Note Date/Time of Note DATE: 11/11/16 TIME: 12:00 Assessment/Plan Assessment/Plan Additional Assessment/Plan stable post op course likely dehydrated, will give a 500 cc NS bolus today PT when feeling better cont metformin for DM along with sliding scale encourage PO intake agree with d/c to SNF tomorrow. Consultation Date/Type/Reason Admit Date/Time Nov 09, 2016 at 07:44 Initial Consult Date 24 HR Interval Summary Free Text/Dictation felt dizzy this AM after ambulation, better with rest and laying down. Otherwise stable. Exam/Review of Systems Vital Signs Vitals Vital Signs Date Time Temp Pulse Resp B/P Pulse Ox O2 Delivery O2 Flow Rate FiO2 11/11/16 08:02 97.9 94 20 151/65 93 11/09/16 18:25 Nasal Cannula 11/09/16 13:47 2.0 Intake and Output 11/10/16 11/10/16 11/11/16 15:00 23:00 07:00 Intake Total 100 ml 2500 ml 920 ml Output Total 780 ml 1200 ml Balance 100 ml 1720 ml -280 ml Exam Constitutional: alert, oriented, well developed Respiratory: clear to auscultation, normal air movement Cardiovascular: nl pulses, regular rate and rhythm Gastrointestinal: nl liver, spleen, non-tender, soft Results Result Diagram: 11/11/16 0426 11/11/16 0426 Results 24 hrs Laboratory Tests Test 11/10/16 12:04 11/10/16 17:32 11/10/16 20:17 11/11/16 00:15 Bedside Glucose 216 205 183 141 Test 11/11/16 04:26 11/11/16 07:49 11/11/16 10:57 Anion Gap 12 Blood Urea Nitrogen 8 Calcium Level 8.5 Carbon Dioxide Level 30 Chloride Level 105 Creatinine 0.48 Glucose Level 140 Hematocrit 29.9 L Hemoglobin 9.3 L Potassium Level 3.2 L Sodium Level 144 Bedside Glucose 154 244 H Medications Medications Current Medications Miscellaneous Information 1 ea 1 ea NOTE XX ; Start 11/09/16 at 16:00; Stop at 15:59 Lactated Ringer's (Lr) 1,000 ml @ 125 mls/hr Q8H IV Last administered on t 06:35; Admin Dose 125 MLS/HR; Start 11/09/16 at 13:18 Celecoxib (Celebrex) 200 mg DAILY PO Last administered on 11/11/16 08:23; Admin Dose 200 MG; Start 11/10/16 at 09:00 Tramadol HCl (Ultram) 50 mg Q6 PO Last administered on 11/11/16 07:03; Admin Dose 50 MG; Start 11/09/16 at 18:00; Stop 11/12/16 at 17:59 Oxycodone HCl (Roxicodone) 5 mg Q4H PRN PO PAIN LEVEL 1-3; Start 11/09/16 at 13: 30 Oxycodone HCl (Roxicodone) 10 mg Q4H PRN PO PAIN LEVEL 4-7; Start 11/09/16 at 13 :30 Hydromorphone HCl (Dilaudid) 1 mg Q3H PRN IV PAIN LEVEL 8-10; Start 11/09/16 at 13:30 Ondansetron HCl (Zofran Inj) 4 mg Q6H PRN IV NAUSEA AND/OR VOMITING Last administered on 11/11/16 10:52; Admin Dose 4 MG; Start 11/09/16 at 13:30 Bisacodyl (Dulcolax Supp) 10 mg Q12H PRN [place] CONSTIPATION; Start 11/09/16 at 13: 30 Magnesium Hydroxide (Milk Of Mag) 30 ml BID PRN PO CONSTIPATION; Start 11/09/16 at 13:30 Sodium Biphosphate/ Sodium Phosphate (Fleet Enema) 133 ml DAILY PRN [place] CONSTIPATION; Start 11/09/16 at 13:30 Docusate Sodium (Colace) 100 mg BID PO Last administered on 11/11/16 08:23; Admin Dose 100 MG; Start 11/09/16 at 21:00 Diphenhydramine HCl (Benadryl) 25 mg Q6H PRN PO PRURITUS; Start 11/09/16 at 13: 30 Aspirin (Ecotrin) 325 mg BID PO Last administered on 11/11/16 08:23; Admin Dose 325 MG; Start 11/10/16 at 09:00 Pantoprazole (Protonix Tab) 40 mg BID@06,18 PO Last administered on 11/11/16 07 :02; Admin Dose 40 MG; Start 11/09/16 at 18:00 Pregabalin (Lyrica) 50 mg BID PO Last administered on 11/11/16 08:23; Admin Dose 50 MG; Start 11/09/16 at 21:00 Miscellaneous Information 1 ea NOTE XX ; Start 11/09/16 at 14:00 Glucose (Glutose) 15 gm Q15M PRN PO DECREASED GLUCOSE; Start 11/09/16 at 14:00 Glucose (Glutose) 22.5 gm Q15M PRN PO DECREASED GLUCOSE; Start 11/09/16 at 14:00 Dextrose (D50w Syringe) 25 ml Q15M PRN IV DECREASED GLUCOSE; Start 11/09/16 at 14:00 Dextrose (D50w Syringe) 50 ml Q15M PRN IV DECREASED GLUCOSE; Start 11/09/16 at 14:00 Glucagon (Glucagen) 1 mg Q15M PRN IM DECREASED GLUCOSE; Start 11/09/16 at 14:00 Glucose (Glutose) 15 gm Q15M PRN BUCCAL DECREASED GLUCOSE; Start 11/09/16 at 14: 00 Diagnostic Test (Pha) (Accucheck) 1 ea 02 XX Last administered on 11/11/16 02: 48; Admin Dose 1 EA; Start 11/10/16 at 02:00 Trimethobenzamide HCl (Tigan) 200 mg Q6H PRN IM NAUSEA AND/OR VOMITING; Start 11/09/16 at 20:00 DOMINIC ADAME MD Nov 11, 2016 12:01
[2016-11-11] MEDS: oxyCODONE 5 MG TAB PO PRN ×2 (19:03→20:25)
[2016-11-11 21:03] VITALS: BP 141/64; RESP 20
[2016-11-12] MEDS: traMADol 50 MG TAB PO SCH ×3 (00:15→13:40)
[2016-11-12] MEDS: ACCUCHECK XX SCH (02:00)
[2016-11-12] MEDS: oxyCODONE 5 MG TAB PO PRN ×3 (04:43→21:19)
[2016-11-12] MEDS: PANTOPRAZOLE (EC) 40 MG TAB PO SCH ×2 (06:37→18:26)
[2016-11-12 06:48] LABS: HEMATOCRIT 30.2 % (37.0-47.0); HEMOGLOBIN 9.2 g/dl (12.0-16.0)
[2016-11-12 07:16] LABS: POTASSIUM 3.5 mmol/L (3.5-5.1)
[2016-11-12 07:18] LABS: CREATININE 0.51 mg/dl (0.44-1.00)
[2016-11-12 07:19] LABS: CALCIUM 8.8 mg/dl (8.4-10.2)
[2016-11-12] MEDS: PREGABALIN 25 MG CAP PO SCH ×2 (09:21→21:10)
[2016-11-12] MEDS: ASPIRIN (EC) 325 MG TAB PO SCH ×2 (09:21→21:10)
[2016-11-12] MEDS: CELECOXIB 200 MG CAP PO SCH (09:21)
[2016-11-12] MEDS: ONDANSETRON 4 MG INJ IV PRN (09:21)
[2016-11-12] MEDS: DOCUSATE SODIUM 100 MG CAP PO SCH ×2 (09:22→21:10)
[2016-11-12] MEDS: metFORMIN 500 MG TAB PO SCH ×2 (09:22→18:26)
[2016-11-12] MEDS: INSULIN ASPART [NOVOLOG] 3 ML PEN SC SCH ×4 (09:26→21:13)
--- NOTE | 2016-11-12 11:35 | CONS ---
Date/Time of Note Date/Time of Note DATE: 11/12/16 TIME: 11:34 Assessment/Plan Assessment/Plan Additional Assessment/Plan stable post op course BP and CBC stable cont metformin for DM along with sliding scale encourage PO intake bowel regimen d/c to SNF tomorrow. Consultation Date/Type/Reason Admit Date/Time Nov 09, 2016 at 07:44 24 HR Interval Summary Free Text/Dictation Feeling a little dizzy in bed this morning, also was in pain when walking. Given pain med and anti-emetic, feeling a little better now. Wants to wait for rehab until tomorrow. Eating well, no BM yet. Constitutional: improved, no complaints, No chills, No diaphoresis, No disoriented, No febrile, No other, No poor po, No requiring IVF, No requiring O2 Exam/Review of Systems Vital Signs Vitals Vital Signs Date Time Temp Pulse Resp B/P Pulse Ox O2 Delivery O2 Flow Rate FiO2 11/11/16 21:03 98.5 95 20 141/64 95 11/09/16 18:25 Nasal Cannula 11/09/16 13:47 2.0 Intake and Output 11/11/16 11/11/16 11/12/16 15:00 23:00 07:00 Intake Total 900 ml 1350 ml 750 ml Output Total 1550 ml 900 ml Balance 900 ml -200 ml -150 ml Exam Constitutional: alert, oriented, well developed Respiratory: clear to auscultation, normal air movement Cardiovascular: nl pulses, regular rate and rhythm Gastrointestinal: nl liver, spleen, non-tender, soft Results Result Diagram: 11/12/16 0435 11/12/16 0435 Results 24 hrs Laboratory Tests Test 11/11/16 16:51 11/11/16 20:19 11/12/16 00:13 11/12/16 04:35 Bedside Glucose 182 220 154 Anion Gap 14 Blood Urea Nitrogen 8 Calcium Level 8.8 Carbon Dioxide Level 28 Chloride Level 100 Creatinine 0.51 Glucose Level 155 Hematocrit 30.2 L Hemoglobin 9.2 L Potassium Level 3.5 Sodium Level 138 Test 11/12/16 08:03 11/12/16 11:31 Bedside Glucose 211 239 H Medications Medications Current Medications Miscellaneous Information 1 ea NOTE XX ; Start 11/09/16 at 16:00; Stop 11/13/16 at 15:59 Celecoxib (Celebrex) 200 mg DAILY PO Last administered on 11/12/16 09:21; Admin Dose 200 MG; Start 11/10/16 at 09:00 Tramadol HCl (Ultram) 50 mg Q6 PO Last administered on 11/12/16 06:37; Admin Dose 50 MG; Start 11/09/16 at 18:00; Stop 11/12/16 at 17:59 Oxycodone HCl (Roxicodone) 5 mg Q4H PRN PO PAIN LEVEL 1-3 Last administered on 11/11/16 20:25; Admin Dose 5 MG; Start 11/09/16 at 13:30 Oxycodone HCl (Roxicodone) 10 mg Q4H PRN PO PAIN LEVEL 4-7 Last administered on 11/12/16 09:21; Admin Dose 10 MG; Start 11/09/16 at 13:30 Hydromorphone HCl (Dilaudid) 1 mg Q3H PRN IV PAIN LEVEL 8-10; Start 11/09/16 at 13:30 Ondansetron HCl (Zofran Inj) 4 mg Q6H PRN IV NAUSEA AND/OR VOMITING Last administered on 11/12/16 09:21; Admin Dose 4 MG; Start 11/09/16 at 13:30 Bisacodyl (Dulcolax Supp) 10 mg Q12H PRN [place] CONSTIPATION; Start 11/09/16 at 13: 30 Magnesium Hydroxide (Milk Of Mag) 30 ml BID PRN PO CONSTIPATION; Start 11/09/16 at 13:30 Sodium Biphosphate/ Sodium Phosphate (Fleet Enema) 133 ml DAILY PRN [place] CONSTIPATION; Start 11/09/16 at 13:30 Docusate Sodium (Colace) 100 mg BID PO Last administered on 11/12/16 09:22; Admin Dose 100 MG; Start 11/09/16 at 21:00 Diphenhydramine HCl (Benadryl) 25 mg Q6H PRN PO PRURITUS; Start 11/09/16 at 13: 30 Aspirin (Ecotrin) 325 mg BID PO Last administered on 11/12/16 09:21; Admin Dose 325 MG; Start 11/10/16 at 09:00 Pantoprazole (Protonix Tab) 40 mg BID@18 PO Last administered on 3/5/17at 06 :37; Admin Dose 40 MG; Start 11/09/16 at 18:00 Pregabalin (Lyrica) 50 mg BID PO Last administered on 11/12/16 09:21; Admin Dose 50 MG; Start 11/09/16 at 21:00 Miscellaneous Information 1 ea NOTE XX ; Start 11/09/16 at 14:00 Glucose (Glutose) 15 gm Q15M PRN PO DECREASED GLUCOSE; Start 11/09/16 at 14:00 Glucose (Glutose) 22.5 gm Q15M PRN PO DECREASED GLUCOSE; Start 11/09/16 at 14:00 Dextrose (D50w Syringe) 25 ml Q15M PRN IV DECREASED GLUCOSE; Start 11/09/16 at 14:00 Dextrose (D50w Syringe) 50 ml Q15M PRN IV DECREASED GLUCOSE; Start 11/09/16 at 14:00 Glucagon (Glucagen) 1 mg Q15M PRN IM DECREASED GLUCOSE; Start 11/09/16 at 14:00 Glucose (Glutose) 15 gm Q15M PRN BUCCAL DECREASED GLUCOSE; Start 11/09/16 at 14: 00 Diagnostic Test (Pha) (Accucheck) 1 ea 02 XX Last administered on 11/12/16 02: 00; Admin Dose 1 EA; Start 11/10/16 at 02:00 Trimethobenzamide HCl (Tigan) 200 mg Q6H PRN IM NAUSEA AND/OR VOMITING; Start 11/09/16 at 20:00 DOMINIC ADAME MD Nov 12, 2016 11:35
[2016-11-12] MEDS ORDERED: BISACODYL (EC) 5 MG TAB PO PRN (12:00)
--- NOTE | 2016-11-12 14:21 | PN ---
Date/Time of Note Date/Time of Note DATE: 11/12/16 TIME: 14:19 Assessment/Plan Lines/Catheters IV Catheter Type (from Nrsg): Peripheral IV Lazo in Place (from Nrsg): Yes Assessment/Plan Assessment/Plan POD # 3. Stable. -Continue PT OOB -Pain meds -ASA/SCDs -Plan for D/C tomorrow to [facility] Subjective 24 Hr Interval Summary Comfortable. Wants to go to [facility] tomorrow. Exam/Review of Systems Vital Signs Vitals Vital Signs Date Time Temp Pulse Resp B/P Pulse Ox O2 Delivery O2 Flow Rate FiO2 11/11/16 21:03 98.5 95 20 141/64 95 11/09/16 18:25 Nasal Cannula 11/09/16 13:47 2.0 Intake and Output 11/11/16 11/11/16 11/12/16 15:00 23:00 07:00 Intake Total 900 ml 1350 ml 750 ml Output Total 1550 ml 900 ml Balance 900 ml -200 ml -150 ml Exam Free Text/Dictation Dressing dry Incision clean, dry, and intact without redness or drainage 01/12 Tibialis Anterior, EHL, Gastroc Soleus, Peroneals Normal sensation Palpable DP/PT, CR < 2 Sec No distal edema Results Result Diagram: 11/12/16 0435 11/12/16 0435 ANT DEUTSCH MD Nov 12, 2016 14:20
[2016-11-12 19:40] VITALS: BP 129/62; RESP 18
[2016-11-13] MEDS: ACCUCHECK XX SCH (02:10)
[2016-11-13 05:40] LABS: HEMATOCRIT 28.2 % (37.0-47.0); HEMOGLOBIN 8.8 g/dl (12.0-16.0)
[2016-11-13 05:43] LABS: POTASSIUM 3.9 mmol/L (3.5-5.1)
[2016-11-13 05:46] LABS: CREATININE 0.51 mg/dl (0.44-1.00)
[2016-11-13 05:47] LABS: CALCIUM 8.5 mg/dl (8.4-10.2)
[2016-11-13] MEDS: PANTOPRAZOLE (EC) 40 MG TAB PO SCH (06:03)
[2016-11-13] MEDS: ASPIRIN (EC) 325 MG TAB PO SCH (08:31)
[2016-11-13] MEDS: PREGABALIN 25 MG CAP PO SCH (08:31)
[2016-11-13] MEDS: oxyCODONE 5 MG TAB PO PRN ×2 (08:32→13:23)
[2016-11-13] MEDS: metFORMIN 500 MG TAB PO SCH (08:32)
[2016-11-13] MEDS: DOCUSATE SODIUM 100 MG CAP PO SCH (08:32)
[2016-11-13] MEDS: CELECOXIB 200 MG CAP PO SCH (08:32)
[2016-11-13] MEDS: INSULIN ASPART [NOVOLOG] 3 ML PEN SC SCH ×2 (08:36→13:26)
--- NOTE | 2016-11-13 08:51 | PN ---
Date/Time of Note Date/Time of Note DATE: 11/13/16 TIME: 08:50 Assessment/Plan Lines/Catheters IV Catheter Type (from Nrsg): Saline Lock Lazo in Place (from Nrsg): No Assessment/Plan Assessment/Plan Stable POD #4, s/p left TKA -pain meds as needed -OOB with PT -ASA/SCDs for DVT prophylaxis -d/c home today -follow up in the office in 1 week Subjective 24 Hr Interval Summary Doing well. No acute overnight events. Minimal pain. Stable for transfer today. Exam/Review of Systems Vital Signs Vitals Vital Signs Date Time Temp Pulse Resp B/P Pulse Ox O2 Delivery O2 Flow Rate FiO2 11/12/16 19:40 98.4 91 18 129/62 98 11/09/16 18:25 Nasal Cannula 11/09/16 13:47 2.0 Intake and Output 11/12/16 11/12/16 11/13/16 15:00 23:00 07:00 Intake Total 700 ml 500 ml Balance 700 ml 500 ml Exam Free Text/Dictation Dressing dry Incision clean, dry, and intact without redness or drainage Thigh soft 01/12 Quadriceps, Tibialis Anterior, EHL, Gastroc, Soleus, Peroneals Normal sensation Palpable DT/PT, CR <2 sec No distal edema Results Result Diagram: 11/13/16 0415 11/13/16 0415 ARVIND ROSE PA-C Nov 13, 2016 08:51
[2016-11-13 10:20] VITALS: BP 157/69; RESP 18
--- NOTE | 2016-11-13 10:43 | CONS ---
Date/Time of Note Date/Time of Note DATE: 11/13/16 TIME: 10:41 Assessment/Plan Assessment/Plan Chief Complaint/Hosp Course She is 4 days postop a left total knee arthroplasty. She is up walking with physical therapy. Her nausea has resolved and she feels much better than yesterday. I will continue her Metformin and restart her glipizide for her type 2 diabetes mellitus. Continue Accu-Chek coverage with Humalog insulin as needed. She is going to be transferred to the [facility] today. I agree with the transfer. Problems: Consultation Date/Type/Reason Admit Date/Time Nov 09, 2016 at 07:44 24 HR Interval Summary Free Text/Dictation She is feeling better however she is having some left knee pain. Her blood sugars have been high. Exam/Review of Systems Vital Signs Vitals Vital Signs Date Time Temp Pulse Resp B/P Pulse Ox O2 Delivery O2 Flow Rate FiO2 11/13/16 10:20 98.0 99 18 157/69 97 11/09/16 18:25 Nasal Cannula 11/09/16 13:47 2.0 Intake and Output 11/12/16 11/12/16 11/13/16 15:00 23:00 07:00 Intake Total 700 ml 500 ml Balance 700 ml 500 ml Exam Constitutional: alert, oriented, well developed Respiratory: clear to auscultation, normal air movement Cardiovascular: nl pulses, regular rate and rhythm Gastrointestinal: nl liver, spleen, non-tender, soft Musculoskeletal: nl extremities to inspection Results Result Diagram: 11/13/16 0415 11/13/16 0415 Results 24 hrs Laboratory Tests Test 11/12/16 11:31 11/12/16 17:08 11/12/16 21:08 11/13/16 01:38 Bedside Glucose 239 H 195 238 H 147 Test 11/13/16 04:15 11/13/16 07:58 Anion Gap 14 Blood Urea Nitrogen 7 Calcium Level 8.5 Carbon Dioxide Level 31 Chloride Level 98 Creatinine 0.51 Glucose Level 174 Hematocrit 28.2 L Hemoglobin 8.8 L Potassium Level 3.9 Sodium Level 139 Bedside Glucose 230 H Medications Medications Current Medications Miscellaneous Information 1 ea NOTE XX ; Start 11/09/16 at 16:00; Stop 11/13/16 at 15:59 Celecoxib (Celebrex) 200 mg DAILY PO Last administered on 11/13/16 08:32; Admin Dose 200 MG; Start 11/10/16 at 09:00 Oxycodone HCl (Roxicodone) 5 mg Q4H PRN PO PAIN LEVEL 1-3 Last administered on 11/11/16 20:25; Admin Dose 5 MG; Start 11/09/16 at 13:30 Oxycodone HCl (Roxicodone) 10 mg Q4H PRN PO PAIN LEVEL 4-7 Last administered on 11/13/16 08:32; Admin Dose 10 MG; Start 11/09/16 at 13:30 Hydromorphone HCl (Dilaudid) 1 mg Q3H PRN IV PAIN LEVEL 8-10; Start 11/09/16 at 13:30 Ondansetron HCl (Zofran Inj) 4 mg Q6H PRN IV NAUSEA AND/OR VOMITING Last administered on 11/12/16 09:21; Admin Dose 4 MG; Start 11/09/16 at 13:30 Bisacodyl (Dulcolax Supp) 10 mg Q12H PRN [place] CONSTIPATION Last administered on 13:40; Admin Dose 10 MG; Start 11/09/16 at 13:30 Magnesium Hydroxide (Milk Of Mag) 30 ml BID PRN PO CONSTIPATION; Start 11/09/16 at 13:30 Sodium Biphosphate/ Sodium Phosphate (Fleet Enema) 133 ml DAILY PRN [place] CONSTIPATION; Start 11/09/16 at 13:30 Docusate Sodium (Colace) 100 mg BID PO Last administered on 11/13/16 08:32; Admin Dose 100 MG; Start 11/09/16 at 21:00 Diphenhydramine HCl (Benadryl) 25 mg Q6H PRN PO PRURITUS; Start 11/09/16 at 13: 30 Aspirin (Ecotrin) 325 mg BID PO Last administered on 11/13/16 08:31; Admin Dose 325 MG; Start 11/10/16 at 09:00 Pantoprazole (Protonix Tab) 40 mg BID@06,18 PO Last administered on 11/13/16 06 :03; Admin Dose 40 MG; Start 11/09/16 at 18:00 Pregabalin (Lyrica) 50 mg BID PO Last administered on 11/13/16 08:31; Admin Dose 50 MG; Start 11/09/16 at 21:00 Miscellaneous Information 1 ea NOTE XX ; Start 11/09/16 at 14:00 Glucose (Glutose) 15 gm Q15M PRN PO DECREASED GLUCOSE; Start 11/09/16 at 14:00 Glucose (Glutose) 22.5 gm Q15M PRN PO DECREASED GLUCOSE; Start 11/09/16 at 14:00 Dextrose (D50w Syringe) 25 ml Q15M PRN IV DECREASED GLUCOSE; Start 11/09/16 at 14:00 Dextrose (D50w Syringe) 50 ml Q15M PRN IV DECREASED GLUCOSE; Start 11/09/16 at 14:00 Glucagon (Glucagen) 1 mg Q15M PRN IM DECREASED GLUCOSE; Start 11/09/16 at 14:00 Glucose (Glutose) 15 gm Q15M PRN BUCCAL DECREASED GLUCOSE; Start 11/09/16 at 14: 00 Diagnostic Test (Pha) (Accucheck) 1 ea 02 XX Last administered on 11/13/16 02: 10; Admin Dose 1 EA; Start 11/10/16 at 02:00 Trimethobenzamide HCl (Tigan) 200 mg Q6H PRN IM NAUSEA AND/OR VOMITING Last administered on 11/12/16 14:56; Admin Dose 200 MG; Start 11/09/16 at 20:00 Bisacodyl (Dulcolax) 10 mg DAILY PRN PO CONSTIPATION; Start 11/12/16 at 12:00 DARRELL NAVARRETE MD Nov 13, 2016 10:43
[2016-11-13] MEDS ORDERED: glipiZIDE 10 MG TAB PO SCH ×2 (13:18→17:25)
--- NOTE | 2016-11-14 04:13 | DS ---
DATE OF ADMISSION: 11/09/2016 DATE OF DISCHARGE: 11/13/2016 CONDITION ON DISCHARGE: Stable. ADMITTING DIAGNOSIS: Left knee osteoarthritis. DISCHARGE DIAGNOSIS: Status post left total knee arthroplasty. PROCEDURE PERFORMED: Left total knee arthroplasty. HOSPITAL COURSE: This is a 66-year-old female who was seen in the clinic initially complaining of left knee pain. X-rays were obtained and demonstrated advanced osteoarthritis of the left knee and it was thought she would benefit from a left total knee arthroplasty. On 11/09/2016, the patient was admitted and taken to the operating room where she underwent a left total knee arthroplasty. There were no intraoperative complications. The patient tolerated the procedure well. She was taken to the recovery room in stable condition. Pain was well controlled with oral pain medication. She was started on aspirin and SCDs for DVT prophylaxis. She remained hemodynamically stable and neurovascularly intact throughout her hospital stay. She began physical therapy on postoperative day 1 and was deemed clinically stable for transfer on postoperative day #4. Prior to transfer, the incision was inspected and noted to be clean, dry and intact. Dressing changes were done prior to the patient going to the [facility]. LABORATORY ANALYSIS: Hematocrit 28.2. Chemistry panel was within normal limits. Glucose was elevated at 275. DISCHARGE MEDICATIONS: 1. [place] 7.5/325 mg. 2. Lyrica 50 mg. 3. Tramadol 50 mg. 4. Aspirin 325 mg. 5. Protonix 40 mg. 6. Additionally, the patient is to resume all her normal home medications. DISCHARGE INSTRUCTIONS: The patient will be transferred to the [facility] in stable condition. She is to resume a normal diet. Activity includes weightbearing as tolerated on the surgical lower extremity. She will continue physical therapy at the [facility]. She was transferred with the medications noted above and is to resume all of her normal home medications. She is to call the office or go to the emergency room for any concerns including increased redness, swelling, drainage, fever or any other concern regarding the operation or site of incision. FOLLOWUP: The patient is to follow up in the office in 1 week. Dictated By: ARVIND BERMAN for ANT GOODWIN/KVNG Conf#: [id number] DID#: [id number] [facility] CENTERJudy
--- NOTE | 2016-11-15 07:12 | PREOPHP ---
DATE OF ADMISSION: 11/09/2016 HISTORY OF PRESENT ILLNESS: The patient is a 66-year-old - female who is scheduled for t otal knee replacement by Dr. Roland Deutsch. Patient is scheduled for surgery on November 09, 2016, left to viviana knee arthroplasty. Diagnosis is left knee osteoarthritis. The patient complains of pain both t he knees while walking. Difficulty in the movements of the knee joint. PAST MEDICAL HISTORY: The patient has a history of diabetes mellitus type 2 diabetes. MEDICATION: She is on medication: 1. Metformin 1000 mg b.i.d. 2. Glipizide 10 mg b.i.d. PAST SURGICAL HISTORY: Umbilical hernia surgery. ALLERGIES: NO KNOWN ALLERGIES. PHYSICAL EXAMINATION: GENERAL: The patient is alert, awake, cooperative. VITAL SIGNS: Pulse 72, blood pressure 140/78, rate 136, temperature 97.9. HEENT: Normal. CVS: RSR. No murmur. LUNGS: Clear to auscultation and palpation. ABDOMEN: Soft, nontender, bowel sounds active. EXTREMITIES: No edema. IMPRESSION: 1. Osteoarthritis, both knees. 2. Diabetes mellitus. The patient had EKG, lab test, and chest x-ray done. Chest x-ray is normal. Lab test revealed fast ing blood sugar of 118 mg percent. Hemoglobin A1c of 6.9. Hemoglobin is 12.7 and hematocrit is 39.6 . Her chest x-ray is normal. Her EKG revealed nonspecific normal sinus rhythm, nonspecific ST-T wa ve changes and all of the findings are normal. IMPRESSION: 1. Osteoarthritis both the knees, left more than right. 2. Diabetes mellitus. PLAN: Left knee arthroplasty. The patient is cleared for surgery. Pre-OP History and Physical dictated by Dr. Winter Pineda for Dr Ant Deutsch. Dictated By: ANT DEUTSCH MD EZ/NTS Conf#: [id number] DID#: [id number] CC: WINTER PINEDA MD;*EndCC*
== END 2016-11-13 15:10 | DRG 470 ==
LOC: REC 07:44 → MS1 15:35
PROVIDERS: ADMIT Orthopaedic Surgery; ATTEND Orthopaedic Surgery
PROC: 0SRD0J9 Replacement of Left Knee Joint with Synthetic Substitute, Cemented, Open Approach (ICD-10-PCS; principal; 2016-11-09 10:30)
DX: M17.12 Unilateral primary osteoarthritis, left knee (principal); E11.9 Type 2 diabetes mellitus without complications; E86.0 Dehydration
CPT/HCPCS: 73560; 80048; 81001; 81003; 82962; 85014; 85018; 86850; 86900; 86901; 86920; 87081; 87086; 88304; 88311; 97110; 97116; 97162; 97167; 97530; Z7610; C1776; C9290; J0131; J0171; J0330; J0690; J0697; J0735; J0780; J1100; J1815; J1885; J2250; J2274; J2405; J2765; J3010; J3250; J3370; J7040; J7120

== ENCOUNTER → 2016-11-20 | Outpatient (CLI) | payer MEDICARE, BC ==
[~2016-11-20] MED LIST changes: +ASPI325T32 PO; +CHOL20003 PO; +FERR325C PO; +GLIP-95 PO; +HYDR-905 PO; +LYRI25 PO; +MTF1000T PO; +MULT-860 PO; +PANT40TA4 PO; -ROCURONIUM 50 MG INJ ONE; -SUCCINYLCHOLINE CHLORIDE 100 MG/5 ML SYG IV ONE; +SUPER K PO; +TRAM50TA2 PO
--- NOTE | 2016-11-20 13:42 | HKNOTE ---
DATE OF SERVICE: 11/20/2016 INTERVAL HISTORY: The patient presents today for her first postoperative evaluation. She is 10 days status post left total knee arthroplasty. She is at the [facility]. She is doing well overall. She has not done very much physical therapy; however, though. She denies any fevers, chills. She is complaining of left knee pain and some mild swelling. She is taking aspirin twice daily for DVT prophylaxis. She presents today for her first postoperative evaluation. PHYSICAL EXAMINATION: Today, she is alert and oriented x4, and in no acute distress. She is walking with a front-wheel walker. Exam of the incision demonstrates it to be clean, dry, and intact. Nury are in place. There is no pus or drainage noted. There is some mild swelling around the knee. No effusion. Homans sign is negative. There is no erythema or warmth. Range of motion is 0-90 degrees. Compartments are otherwise soft. She is neurovascularly intact distally. IMAGING: X-rays of the left knee were obtained today and reviewed by me. They reveal good anatomic alignment with no fracture or dislocation identified. ASSESSMENT: Ten days status post left total knee arthroplasty. PLAN: The nury were removed today, and Steri-Strips were applied. She is to continue aspirin twice daily for 6 weeks for deep venous thrombosis prophylaxis. We encouraged her and will write orders for her at the [facility] to increase her physical therapy twice daily. In addition, we will obtain a Doppler to rule out a deep venous thrombosis although likelihood is low at this point. Barring no setbacks, will see her back in 4 weeks for repeat evaluation. Dictated By: ARVIND BERMAN for ANT GOODWIN/KVNG Conf#: [id number] DID#: [id number] GRACIE
--- NOTE | 2016-11-20 17:23 | RADRPT ---
PROCEDURE: XR Left Knee. CLINICAL INDICATION: Left knee pain. Postop. TECHNIQUE: Two views. Frontal and lateral. COMPARISON: 11/09/2016. FINDINGS: There is no fracture or dislocation. Anterior skin francisco and surgical drain have been removed. There is a total left knee arthroplasty which appears satisfactory. There is no lytic or blastic lesion. There is no joint effusion. IMPRESSION: 1. Satisfactory postoperative appearance of the left knee. RPTAT: QQ .Franko Naqvi MD, MD Date Time Electronically viewed and signed by .Franko Naqvi MD, MD on 11/20/2016 17:22 .R/
== END | disposition home or self-care (01) ==
LOC: HKI 10:02
PROVIDERS: ATTEND Orthopaedic Surgery
DX: Z47.1 Aftercare following joint replacement surgery (principal); Z96.652 Presence of left artificial knee joint; Z79.82 Long term (current) use of aspirin; I82.409 Acute embolism and thrombosis of unspecified deep veins of unspecified lower extremity
CPT/HCPCS: 82962

== ENCOUNTER → 2016-12-22 | Outpatient (CLI) | payer MEDICARE, BC ==
--- NOTE | 2016-12-22 11:59 | RADRPT ---
PROCEDURE: XR left knee. CLINICAL INDICATION: Knee pain. TECHNIQUE: AP and lateral weightbearing views are available for review. COMPARISON: 11/20/2016 FINDINGS: There is a total knee replacement. There is no evidence of loosening of the prosthesis. There is no evidence of hardware failure. The osseous structures are normal in mineralization, architecture and alignment No acute fracture or dislocation is seen.No osseous lesions are identified. The soft tiss ues are unremarkable . IMPRESSION: Unremarkable total knee replacement. RPTAT: HGDB .Get Whittaker MD, MD Date Time Electronically viewed and signed by .Get Whittaker MD, MD on 12/22/2016 11:59 .B/
== END | disposition home or self-care (01) ==
LOC: HKI 10:57
PROVIDERS: ATTEND Orthopaedic Surgery
DX: Z47.1 Aftercare following joint replacement surgery (principal); Z96.652 Presence of left artificial knee joint

== ENCOUNTER → 2017-02-02 | Outpatient (CLI) | payer MEDICARE, BC ==
--- NOTE | 2017-02-02 10:22 | RADRPT ---
PROCEDURE: XR left knee. CLINICAL INDICATION: Knee pain. TECHNIQUE: AP weightbearing, lateral weightbearing and sunrise views are available for review. COMPARISON: 12/22/2016 FINDINGS: There is a total knee replacement. There is no evidence of loosening of the prosthesis. There is no evidence of hardware failure. The osseous structures are normal in mineralization, architecture and alignment No acute fracture or dislocation is seen.No osseous lesions are identified. The soft tiss ues are unremarkable . there is a small suprapatellar joint effusion. IMPRESSION: Unremarkable total knee replacement. Small suprapatellar joint effusion RPTAT: HGDB .Get Whittaker MD, MD Date Time Electronically viewed and signed by .Get Whittaker MD, on 02/02/2017 10:22 .B/
--- NOTE | 2017-02-15 07:42 | PN ---
DATE: 02/12/2017 TELEPHONE NOTE Patient Name: Beatriz Pineda MR#: [id number] The patient called regarding the MRI results of her lumbar spine that was ordered by Dr. Powell. It showed mild levoscoliosis with a grade I anterolisthesis over the L5-S1. Additionally, showed degenerative disk disease at L4-L5, L5-S1 levels causing mild left neural foraminal narrowing at the L5- S1 level. There was no central canal stenosis noted. The patient states symptomatically that she is feeling somewhat better overall. She had a myriad of questions, which were addressed with her at length today. Ultimately, she is having no radicular symptoms and would like to hold off seeing a learning operations specialist at this point. I did recommend multiple names in the [place] area closer to her house as well as closer to our office; however, she would like to hold off on seeing any spine specialists for now until she follows up at the end of February. I advised her to continue her physical therapy for her knee, apply heat to her low back, continue to take the anti-inflammatories prescribed by Dr. Powell, and monitor her low back symptoms for now. If she develops any radicular symptoms, including bowel or bladder incontinence or saddle anesthesia , she will see the learning operations specialist at that point. The patient demonstrates understanding and is comfortable with the treatment plan. Dictated By: ARVIND BERMAN for ANT [facility]WIN/[facility] Conf#: [id number] DID#: [id number] MTDD
== END | disposition home or self-care (01) ==
LOC: HKI 09:22
PROVIDERS: ATTEND Orthopaedic Surgery
DX: Z47.1 Aftercare following joint replacement surgery (principal); M17.12 Unilateral primary osteoarthritis, left knee; Z96.652 Presence of left artificial knee joint

== ENCOUNTER → 2017-04-18 | Outpatient (CLI) | payer MEDICARE, BC ==
[~2017-04-18] MED LIST changes: -CHOL20003 PO; +CHOL200073 PO
--- NOTE | 2017-04-18 17:23 | RADRPT ---
PROCEDURE: Left knee radiographs. CLINICAL INDICATION: Left knee pain. Postop. TECHNIQUE: Three views. Weight bearing. Frontal, lateral, and patellar view. COMPARISON: 02/02/2017. FINDINGS: There is no fracture or dislocation. The soft tissues are normal. There is a total left knee arthroplasty which appears satisfactory. There is no lytic or blastic lesion. There is no joint effusion. IMPRESSION: 1. Satisfactory postoperative appearance of the left knee. RPTAT: QQ .Franko Naqvi MD, Date Time Electronically viewed and signed by .Franko Naqvi MD, on 04/18/2017 17:23 .R/
== END | disposition home or self-care (01) ==
LOC: HKI 10:35
PROVIDERS: ATTEND Orthopaedic Surgery
DX: Z47.89 Encounter for other orthopedic aftercare (principal); Z96.652 Presence of left artificial knee joint